=== PATIENT | female | born 1935 | race Caucasian/White ===

== ENCOUNTER 2017-07-14 09:40 | Observation (INO) | payer MEDICARE ==
[2017-07-14] MEDS ORDERED: Ondansetron INJ* 2 MG/ML VIAL IV ONE ×2 (09:43→13:30)
[2017-07-14] MEDS ORDERED: NS 0.9% 1000 ML* 1,000 ML IV ONE ×2 (09:43→13:19)
[2017-07-14 10:34] LABS: Hematocrit 39 % (35-47); Hemoglobin 13.1 g/dl (12.0-16.0); Mean Corpuscular HGB Conc 34 g/dl (31-36); Mean Corpuscular Hemoglobin 31 pg (27-31); Mean Corpuscular Volume 92 fL (80-97); Mean Platelet Volume 9 um3 (7.4-10.4); Red Blood Count 4.19 10^6/ul (4.0-5.4); Red Cell Distribution Width 13 % (10.5-15)
[2017-07-14 10:47] LABS: C Reactive Protein 6.28 mg/L (< 5.00); EGFR African American 68.6 (>60); EGFR Non-African American 53.3 (>60); Globulin 2.9 g/dL (2-4); Potassium 4.1 mmol/L (3.5-5.0); Total Bilirubin 0.6 mg/dL (0.2-1.0); Total Protein 6.9 g/dL (6.4-8.9)
--- NOTE | 2017-07-14 11:34 | RAD ---
Indication: Cough, lightheaded, nausea and vomiting. Comparison: August 25, 2015 Technique: Sitting AP and lateral chest views. Report: Mild alveolar consolidation at the RIGHT middle lobe without volume loss suspicious for pneumonia. Negative for pleural effusion or pneumothorax. Upper normal heart size. Unremarkable central pulmonary vasculature and mediastinal contours accounting for leftward rotation. Negative for free air beneath the diaphragm. IMPRESSION: Mild alveolar consolidation at the RIGHT middle lobe without volume loss suspicious for pneumonia.
[2017-07-14] MEDS ORDERED: Levofloxacin 750 MG IVPREMIX(* 750 MG/150 ML BAG IVPB ONE (12:01)
[2017-07-14] MEDS ORDERED: Levofloxacin 750 MG IVPREMIX(* 750 MG/150 ML BAG ONE (12:08)
[2017-07-14] MEDS ORDERED: Meclizine TAB* 12.5 MG PO ONE (12:22)
[2017-07-14] MEDS ORDERED: Ondansetron INJ* 2 MG/ML VIAL ONE (13:31)
[2017-07-14] MEDS ORDERED: Azithromycin IV(*) 500 MG in NS 0.9% 250 ML* 250 ML IVPB ONE (13:38)
[2017-07-14] MEDS ORDERED: cefTRIAXone VIAL(*) 1,000 MG in NS 0.9% 50 ML* 50 ML IVPB ONE (13:39)
--- NOTE | 2017-07-14 14:21 | RAD ---
Indication: Nausea and vomiting. Comparison: August 10, 2016 CT. Technique: Supine and LEFT lateral decubitus abdomen views. Report: No radiographic evidence for free air. Unremarkable bowel gas pattern. Moderate stool in the colon with moderate rectal distention with formed appearing stool. Splenic artery and iliac artery calcifications noted. Unremarkable soft tissue contours. IMPRESSION: 1. No evidence for bowel obstruction or free intraperitoneal air. 2. Moderate stool in the colon with moderate rectal distention with formed appearing stool.
[2017-07-14] MEDS ORDERED: PROCHLORPERAZINE INJ 5 MG/ML 2 ML VIAL IV PRN (14:48)
[2017-07-14] MEDS ORDERED: Ondansetron INJ* 2 MG/ML VIAL IV PRN (14:56)
[2017-07-14] MEDS ORDERED: Dextrose 50% Syringe 50 ML* 25 GM/50 ML SYRINGE IV PUSH PRN (14:59)
[2017-07-14] MEDS: NS 0.9% 1000 ML* 1,000 ML IV SCH (16:55)
[2017-07-14] MEDS: Insulin LISPRO* 1 UNITS UNIT SUBCUT SCH (17:46)
[2017-07-14] MEDS: Heparin VIAL(*) 5000 UNITS/ML VIAL (FIVE THOUSAND) SUBCUT SCH (20:27)
--- NOTE | 2017-07-14 21:01 | HP ---
CC: Dr. Zac Cardoso* [facility] MEDICINE HISTORY AND PHYSICAL: DATE OF ADMISSION: 07/14/17 PRIMARY CARE PROVIDER: Dr. Zac Cardoso. ATTENDING PHYSICIAN: Dr. Raudel Travis* (dictation provided by Jennifer Kruse NP ) CHIEF COMPLAINT: Intractable nausea and vomiting. HISTORY OF PRESENT ILLNESS: Ms. Iglesias is an 81-year-old female with a past medical history of endometrial cancer, diabetes which is non-insulin dependent, and intermittent episodes of vertigo or lightheadedness, who presents to hospital today with concern for nausea and vomiting. Ms. Iglesias states she was in her normal state of health until yesterday morning. She went to an exercise class and while there doing some exercises where she was opening and closing her eyes. She stated with this that she became a little lightheaded and vomited. She left the gym and went home. By the time she got home, she vomited again. She states that she continued to vomit from about 5 p.m. until 7 :30 p.m. almost continuously. She went to sleep and woke up around 2 a.m. and had pesistent vomiting. She lay down again for a bit more and then woke up again with constant vomiting. The patient reports that she feels very sensitive in general to bouts of vertigo or lightheadedness. She is sensitive to lying down quickly. It is difficult to ascertain from her whether or not she was feeling dizziness with sensation of the room spinning throughout this reported episode here today, which she was certainly feeling lightheaded and "not herself." She herself connects this episode to prior episodes where she has had vertigo, but she feels like this episode has lasted much longer. Regardless, she has "hot and cold flashes" but no known fever. She has had no abdominal pain, no diarrhea. There are no other complaints. In the emergency room, Ms. Iglesias was given Zofran x2, but she continued to be nauseous and vomit repeatedly. Her labs showed no leukocytosis. Her BUN and creatinine are at baseline. She has only a mild hyponatremia. Her potassium is normal. Her CRP is 6.28. Flu swab is negative. Her abdomen x- ray did show some moderate amount of stool without evidence of obstruction. The chest x-ray shows concern for "mild alveolar consolidation" at the right middle lobe without volume loss suspicious for pneumonia. She is afebrile. PAST MEDICAL HISTORY: 1. History of endometrial cancer. 2. Type 2 diabetes, non-insulin dependent. 3. Hypertension. 4. Vertigo for which she went to [facility] in [place]. MEDICATIONS: 1. B complex 1 tab p.o. daily. 2. Lisinopril 10 mg p.o. q.a.m. 3. Pantoprazole 40 mg p.o. daily. 4. Glipizide 2.5 mg p.o. daily. 5. Metformin 500 mg p.o. b.i.d. 6. Baby aspirin 81 mg p.o. q.a.m. 7. Diltiazem CD 120 mg p.o. daily. ALLERGIES: No known drug allergies. FAMILY HISTORY: Reviewed, noncontributory. SOCIAL HISTORY: No report of alcohol, tobacco, or drug use. The patient lives alone, but has support from her daughter, who is at the bedside and her daughter is her healthcare proxy. REVIEW OF SYSTEMS: A 14-point review of systems was completed with Ms. Iglesias and all those not mentioned above were negative. PHYSICAL EXAMINATION GENERAL: Ms. Iglesias is lying in the bed. She is in no acute distress. VITAL SIGNS: Temperature 96.4, pulse rate 60, respiratory rate 10, O2 saturation 94% on room air, blood pressure 170/67. LUNGS: Clear to auscultation bilaterally with no accessory muscle use and good aeration. HEART: S1, S2. No murmur, rub, or gallop, and regular. ABDOMEN: Soft and nontender with bowel sounds positive x4. EXTREMITIES: No cyanosis or edema. NEURO: She is alert. She is oriented x3. She moves all extremities equally. There is no facial asymmetry or focal weakness. Extraocular movements are intact. SKIN: Intact. DIAGNOSTIC STUDIES/LAB DATA: WBC 8.0, hemoglobin 13.1, hematocrit 39, platelet count 184. Sodium 130, potassium 4.1, chloride 96, serum bicarbonate 26, BUN 22, creatinine 1.00, glucose 218. CRP 6.28. Flu swab is negative. Chest x-ray and abdominal x-ray are as read above. EKG shows sinus bradycardia with heart rate in the 50s, but no evidence of ischemia. ASSESSMENT AND PLAN: Ms. Iglesias is an 81-year-old female with past medical history of non-insulin dependent diabetes, endometrial cancer, hypertension, and intermittent episodes of vertigo/lightheadedness, who presents to the hospital with intractable nausea and vomiting associated with some feelings of lightheadedness. Our plans are for observation to the hospital for the following : 1. Nausea and vomiting. Ms. Iglesias does not appear to have any acute gastrointestinal process. She has not had no diarrhea, no fever. Her white blood cell count and CRP are absolutely normal. I question whether or not her nausea and vomiting are related to the symptoms of dizziness and lightheadedness that she has had intermittently for some time. She feels that this is similar to those episodes; however, it is much much more severe especially in terms of the nausea and vomiting component. Regardless, the patient is having intractable nausea and vomiting in the ED even during my examination and has not responded to Zofran. Our plans will be for observation in the hospital for Zofran, Compazine, and other agents as needed. She will have normal saline for maintenance fluids. She was offered meclizine, but states that that makes her feel "weird" and so that it will be discontinued. Again, I see no evidence of infection and question whether or not this is centrally mediated process. 2. Type 2 diabetes. Plan to hold glipizide and metformin and provide blood glucoses q.a.c. with lispro sliding scale. 3. Hypertension. Continue diltiazem but hold lisinopril while the patient has poor oral intake and potential for dehydration and acute renal failure. 4. DVT prophylaxis with heparin subcu. 5. Code status is full code. TIME SPENT: Approximately 60 minutes was spent on the admission of this patient , more than half of the time was spent with the patient at the bedside reviewing the events leading up to this hospitalization, performing physical examination, and reviewing the plan of care. JENNIFER KRUSE NP [id number]/[facility] #: [id number] SUNG
[2017-07-15] MEDS: Heparin VIAL(*) 5000 UNITS/ML VIAL (FIVE THOUSAND) SUBCUT SCH (05:19)
[2017-07-15] MEDS: NS 0.9% 1000 ML* 1,000 ML IV SCH (05:21)
[2017-07-15 06:50] LABS: BUN/Creatinine Ratio 15.4 (8-20); Calcium 7.9 mg/dL (8.6-10.3); EGFR African American 76.5 (>60); EGFR Non-African American 59.5 (>60); Potassium 3.5 mmol/L (3.5-5.0)
[2017-07-15] MEDS: Insulin LISPRO* 1 UNITS UNIT SUBCUT SCH ×2 (07:22→12:48)
[2017-07-15] MEDS: Aspirin EC Low Dose* 81 MG TAB.EC PO SCH ×2 (08:19→09:54)
[2017-07-15] MEDS: Diltiazem CD CAP* 120 MG PO SCH ×2 (08:19→09:55)
[2017-07-15 11:03] VITALS: BP 129/57
--- NOTE | 2017-07-15 11:59 | PN ---
Subjective Date of Service: 07/15/17 Interval History: Ms. Iglesias states that she is feeling quite well and is eager for discharge to home. Objective Active Medications: Aspirin (Aspirin Ec Low Dose*) 81 mg PO QAM CANDICE Dextrose (D50w Syringe 50 Ml*) 12.5 gm IV PUSH .FOR FS < 60 - SS PRN Diltiazem HCl (Cardizem Cd Cap*) 120 mg PO DAILY CANDICE Heparin Sodium (Porcine) (Heparin Vial(*)) 5,000 units SUBCUT Q8HR CANDICE Sodium Chloride (Ns 0.9% 1000 Ml*) 1,000 mls @ 75 mls/hr IV PER RATE CANDICE Insulin Human Lispro (Humalog*) 0 units SUBCUT AC CANDICE Omeprazole (Prilosec Cap*) 20 mg PO EVERY OTHER DAY CANDICE Ondansetron HCl (Zofran Inj*) 4 mg IV Q6H PRN Prochlorperazine Edisylate (Compazine Inj*) 5 mg IV Q6H PRN Vital Signs 07/14/17 07/14/17 07/14/17 16:51 19:37 22:09 Temperature 97.6 F 97.6 F 98.8 F Pulse Rate 54 70 Respiratory 16 20 Rate Blood Pressure 142/58 117/51 (mmHg) O2 Sat by Pulse 99 100 Oximetry 07/14/17 07/15/17 07/15/17 23:32 03:54 07:33 Temperature 99.7 F 98.3 F 98.6 F Pulse Rate 71 64 59 Respiratory 13 16 18 Rate Blood Pressure 109/45 124/54 129/57 (mmHg) O2 Sat by Pulse 95 100 96 Oximetry Oxygen Devices in Use Now: None Appearance: Female lying in bed in NAD Eyes: No Scleral Icterus Ears/Nose/Mouth/Throat: Mucous Membranes Moist Neck: Trachea Midline Respiratory: Symmetrical Chest Expansion and Respiratory Effort, Clear to Auscultation Cardiovascular: NL Sounds; No Murmurs; No JVD, No Edema Abdominal: NL Sounds; No Tenderness; No Distention Lymphatic: No Cervical Adenopathy Extremities: No Edema Skin: No Rash or Ulcers Neurological: Alert and Oriented x 3, NL Muscle Strength and Tone Nutrition: Taking PO's Result Diagrams: 07/14/17 10:07 07/15/17 06:02 Assess/Plan/Problems-Billing Assessment: Ms. Iglesias is an 81 yo female with a PMH of vertigo, HTN, and DM who was admitted on 07/14/17 with dizziness associated with intractable nausea and vomiting. - Patient Problems (1) Nausea & vomiting Comment: - Resolved. - Suspect related to dizziness. (2) Dizziness Comment: - Resolved. - Long history fo vertigo. (3) Diabetes Comment: - Resume metformin and glipizide. (4) Hypertension Comment: - Continue diltiazem (5) DVT prophylaxis Comment: - Heparin SQ. (6) DNR (do not resuscitate) Status and Disposition: OBV. Discharge to home.
--- NOTE | 2017-07-15 16:17 | ED ---
Samina Tripathi Edward, scribed for Manish Rutledge MD on 07/14/17 at 0944 . Complex/Multi-Sys Presentation - HPI Summary HPI Summary: 81 y/o female BIBStephanie c/o N/V starting at 17:00 yesterday. Pt has also felt fatigued for the last week. The vomit is mostly clear and yellow. Pt denies pain. Last bowel movement was yesterday normal. Denies CP, SOB, diarrhea and constipation. Associated sx: intermittent cough before vomiting, dizziness, intermittent fevers/chills. Denies CP/SOB, CASTILLO.PMHx vertigo. NKDA. - History Of Current Complaint Hx Obtained From: Patient Onset/Duration: Lasting Days, Still Present Timing: Intermittent, Lasting: Associated Signs And Symptoms: Positive: Dizziness, Cough, Nausea, Vomiting, Fever - and chills, Other - Chills. Negative: Headache, SOB, Chest Pain, Diarrhea, Abdominal Pain - Allergies/Home Medications Allergies/Adverse Reactions: Allergies Allergy/AdvReac Type Severity Reaction Status Date / Time No Known Allergies Allergy Verified 08/25/15 15:53 Home Medications: Home Medications Pantoprazole TAB (NF) [Protonix TAB (NF)] 40 mg PO DAILY 07/14/17 [History Confirmed 07/14/17] PMH/Surg Hx/FS Hx/Imm Hx Previously Healthy: No Endocrine/Hematology History: Reports: Hx Diabetes Denies: Hx Anticoagulant Therapy Cardiovascular History: Reports: Hx Hypertension Denies: Hx Pacemaker/ICD History: Reports: Other Problems/Disorders - UTI Denies: Hx Dialysis, Hx Kidney Stones, Hx Renal Disease Musculoskeletal History: Reports: Other Musculoskeletal History - left ankle fx repair causes Sensory History: Reports: Hx Cataracts, Hx Contacts or Glasses - READING GLASSES INST GIVEN Denies: Hx Hearing Aid Opthamlomology History: Reports: Hx Cataracts, Hx Contacts or Glasses - READING GLASSES INST GIVEN Neurological History: Reports: Hx Migraine - YRS AGO, Other Neuro Impairments/ Disorders - hearing loss left Psychiatric History: Denies: Hx Panic Disorder - Cancer History Cancer Type, Location and Year: endometrial - Surgical History Surgery Procedure, Year, and Place: 2009 left broken ankle surgery Hx Anesthesia Reactions: No - Family History Known Family History: Positive: Other - no malignant hyperthermia, no anesthesia reaction - Social History Alcohol Use: Weekly Hx Substance Use: No Substance Use Type: Reports: None Hx Tobacco Use: No Smoking Status (MU): Never Smoked Tobacco Review of Systems Positive: Fever, Chills, Fatigue Eyes: Negative ENT: Negative Cardiovascular: Negative Negative: Chest Pain Positive: Cough. Negative: Shortness Of Breath Positive: Vomiting, Nausea, Other - No constipation. Negative: Abdominal Pain, Diarrhea Genitourinary: Negative Musculoskeletal: Negative Skin: Negative Neurological: Other - dizziness Negative: Headache Psychological: Normal All Other Systems Reviewed And Are Negative: Yes Physical Exam - Summary Physical Exam Summary: VITAL SIGNS: Reviewed. GENERAL: ~Patient is an elderly female who is vomiting bile vomitus in the stretcher. ~Patient is not in any acute respiratory distress. HEAD AND FACE: No signs of trauma. ~No ecchymosis, hematomas or skull depressions. No sinus tenderness. EYES: PERRLA, EOMI x 2, No injected conjunctiva, no nystagmus. EARS: Hearing grossly intact. Ear canals and tympanic membranes are within normal limits. MOUTH: Oropharynx within normal limits. NECK: Supple, trachea is midline, no adenopathy, no JVD, no carotid bruit, no c- spine tenderness, neck with full ROM. CHEST: Symmetric, no tenderness at palpation LUNGS: Clear to auscultation bilaterally. No wheezing or crackles. CVS: Regular rate and rhythm, S1 and S2 present, no murmurs or gallops appreciated. ABDOMEN: Soft, non-tender. No signs of distention. No rebound no guarding, and no masses palpated. Bowel sounds are normal. EXTREMITIES: FROM in all major joints, no edema, no cyanosis or clubbing. NEURO: Alert and oriented x 3. No acute neurological deficits. Speech is normal and follows commands. SKIN: Dry and warm Triage Information Reviewed: Yes Vital Signs Reviewed: Yes Diagnostics - Laboratory Result Diagrams: 07/14/17 10:07 07/14/17 10:07 Lab Statement: Any lab studies that have been ordered have been reviewed, and results considered in the medical decision making process. - Radiology CXR Xray Interpretation: Positive (See Comments) - Mild alveolar consolidation at the RIGHT middle lobe without volume loss suspicious for pneumonia. ED PHYSICIAN AGREES Radiology Interpretation Completed By: Radiologist ABD XR Xray Interpretation: No Acute Changes - 1. No evidence for bowel obstruction or free intraperitoneal air. 2. Moderate stool in the colon with moderate rectal distention with formed appearing stool. Radiology Interpretation Completed By: Radiologist - EKG 1 EKG Interpretation: 10:35 - SINUS BRADYCARDIA @ [address] ELEVATIONS Re-Evaluation - Re-Evaluation 1 Re-Evaluation Time: 12:15 Change: Unchanged 2 Re-Evaluation Time: 13:30 Comment: Pt is vomiting on revisit, with no pain. Re-exam of ABD/PEL - no pain. Complex Multi-Symp Course/Dx Assessment/Plan: 81 y/o female BIBA c/o N/V starting at 17:00 yesterday. Pt has also felt fatigued for the last week. The vomit is mostly clear and yellow. Pt denies pain. Last bowel movement was yesterday normal. Denies CP, SOB, diarrhea and constipation. Associated sx: intermittent cough before vomiting, dizziness, intermittent fevers/chills. Denies CP/SOB, CASTILLO.PMHx vertigo. NKDA. EKG 10:35 - SINUS BRADYCARDIA @ [address] ELEVATIONS. CXR SHOWS Mild alveolar consolidation at the RIGHT middle lobe without volume loss suspicious for pneumonia. ABD XR SHOWS 1. No evidence for bowel obstruction or free intraperitoneal air. 2. Moderate stool in the colon with moderate rectal distention with formed appearing stool. Sodium 130, creatinine 1, glucose 218, CRP 6.28. Influenza A and B negative. In the ED course the patient was given Levaquin, IV fluids, and Zofran for n/v. Pt continues to have N/V and feels weak. Re-examination was WNL; the pt denies abd pain, cp or sob. Therefore I took an abd xr to r/o obstruction. Pt continues to have n/v and was given a 2nd dose of Zofran. At this point I spoke to Dr. Travis who accepted the pt for admission. The patient is hemodynamically stable, A&Ox3. - Diagnoses Provider Diagnoses: Intractable vomiting, Weakness, Pneumonia - Physician Notifications Discussed Care Of Patient With: Raudel Travis Time Discussed With Above Provider: 14:10 Instructed by Provider To: Admit As Inpatient Discharge - Discharge Plan Condition: Stable Disposition: ADMITTED TO [facility] Referrals: Zac Cardoso MD [Primary Care Provider] - The documentation as recorded by the Samina mejia Edward accurately reflects the service I personally performed and the decisions made by Aamir bean Walter, MD.
--- NOTE | 2017-07-15 23:19 | DS ---
CC: Zac Cardoso MD* [facility] MEDICINE DISCHARGE SUMMARY: DATE OF ADMISSION: 07/14/17 DATE OF DISCHARGE: 07/15/17 PRIMARY CARE PHYSICIAN: Zac Cardoso MD ATTENDING PHYSICIAN: Carlos Longoria MD* (dictation provided by Jennifer Kruse NP) PRIMARY DIAGNOSES: 1. Intractable nausea and vomiting. 2. Dizziness. SECONDARY DIAGNOSES: 1. History of vertigo. 2. History of endometrial cancer. 3. Type 2 diabetes, [id number]. 4. Hypertension. MEDICATIONS: At the time of discharge: 1. Compazine 5 mg as needed. 2. B complex 1 tab p.o. daily. 3. Lisinopril 10 mg p.o. q.a.m. 4. Pantoprazole 40 mg p.o. daily. 5. Glipizide 2.5 mg p.o. daily. 6. Metformin 500 mg p.o. b.i.d. 7. Baby aspirin 81 mg p.o. daily. 8. Diltiazem CD 120 mg p.o. daily. HOSPITAL COURSE: Ms. Iglesias is an 81-year-old female with a past medical history of hypertension and diabetes as well as vertigo who presented to the hospital on 07/14/17 with concern for intractable nausea and vomiting. Please see the dictated H and P from myself for complete details. In brief, the patient reported being very sensitive to changes in head position with a history of vertigo and had started to feeling unwell after an exercise class earlier that day. She had intractable nausea and vomiting for several hours before she presented to the emergency room. She was given Zofran, but continued to have vomiting. In the ED, she had an abdominal x-ray, which showed no acute abnormality. Her EKG showed no acute abnormality without evidence of ischemia. Her labs were essentially normal. There was concern that perhaps there was early infiltrate on chest x-ray, but she had no evidence of cough, fever, or shortness of breath. Ms. Iglesias was placed on observation in the hospital with concern of intractable nausea and vomiting. She remained unwell through the night, but this morning she was feeling much better. She has been able to tolerate breakfast with no vomiting. She has been ambulating in her room independently. I suspect that her nausea was secondary to vertiginous symptoms, which have now resolved. Ms. Iglesias is stable for discharge to home with followup with Dr. Cardoso. DISPOSITION: To home. DIET: Consistent carbohydrate. ACTIVITY: As tolerated. FOLLOWUP PLANS: Please follow up with Dr. Cardoso in the next 1 to 2 weeks regarding this observational stay in the hospital. JENNIFER KRUSE NP [id number]/[facility] #: [id number] SUNG
[2017-07-16] MEDS ORDERED: Omeprazole CAP* 20 MG PO SCH (09:00)
== END 2017-07-15 13:10 | disposition home or self-care (01) ==
LOC: ED 09:40 → MED 14:55
PROVIDERS: ADMIT Internal Medicine; ATTEND Internal Medicine
DX: R11.2 Nausea with vomiting, unspecified (principal); R42 Dizziness and giddiness; E11.9 Type 2 diabetes mellitus without complications; I10 Essential (primary) hypertension; Z85.89 Personal history of malignant neoplasm of other organs and systems; Z79.899 Other long term (current) drug therapy; Z79.84 Long term (current) use of oral hypoglycemic drugs; R00.1 Bradycardia, unspecified
CPT/HCPCS: 36415; 71020; 74020; 80048; 80053; 82150; 83690; 84484; 85025; 86140; 87502; 93005; 96361; 96365; 96376; 99283; A9270-GY; G0378; J1644; J2405

== ENCOUNTER 2019-10-30 14:45 | Observation (INO) | payer MEDICARE ==
--- NOTE | 2019-10-30 15:31 | ED ---
Dizziness - HPI Summary HPI Summary: Patient is an 84 y/o F presenting to the ED via EMS for a chief complaint of dizziness that began around 14:00 on 10/30/19. Patient is present with her daughter. Patient's daughter states the patient was having lunch at [employer] when the patient suddenly began to feel dizzy. After the dizziness began, the patient had lightheadedness, nausea and vomiting. On EMS arrival, patient was unable to ambulate to the ambulance due to her dizziness. The patient feels as if she will have a syncopal episode. The dizziness worsens with opening her eyes. Patient describes that her current symptoms are different from dizziness associated with her PMHx of vertigo. Per daughter, patient last had an episode of vertigo 1 years ago. Her vertigo lasts for 1 day before resolving. She was seen by her PCP, diagnosed with a UTI, and prescribed Sulfa drugs to treat the UTI. Since taking the Sulfa drugs, patient has been feeling lightheaded and fatigued. On 10/25/19, patient returned to her PCP concerned that the antibiotic was interacting with her other daily medications. PMHx is significant for hypertension and diabetes mellitus for which she takes metformin and glipizide. Patient has seen at neurologist in the past for her vertigo. - History Of Current Complaint Chief Complaint: EDDizziness Stated Complaint: DIZZY,NAUSEA,VOMITING PER EMS Time Seen by Provider: 10/30/19 15:03 Hx Obtained From: Patient, Family/[employer] - Daughter Severity Initially: Moderate Severity Currently: Moderate Character: Lightheaded, Dizzy Aggravating Factor(s): Other - Opening the eyes Alleviating Factor(s): Nothing Associated Signs And Symptoms: Positive: Nausea, Vomiting, Inability to Walk - Allergies/Home Medications Allergies/Adverse Reactions: Allergies Allergy/AdvReac Type Severity Reaction Status Date / Time No Known Allergies Allergy Verified 10/30/19 14:52 Home Medications: Home Medications Vitamin B Complex CAP* [B Complex CAP*] 1 cap PO DAILY 10/30/19 [History Confirmed 10/30/19] PMH/Surg Hx/FS Hx/Imm Hx Previously Healthy: Yes Endocrine/Hematology History: Reports: Hx Diabetes Denies: Hx Anticoagulant Therapy Cardiovascular History: Reports: Hx Hypercholesterolemia, Hx Hypertension Denies: Hx Pacemaker/ICD GI History: Reports: Hx Gastroesophageal Reflux Disease History: Reports: Other Problems/Disorders - UTI Denies: Hx Dialysis, Hx Kidney Stones, Hx Renal Disease Musculoskeletal History: Reports: Other Musculoskeletal History - left ankle fx repair causes Sensory History: Reports: Hx Cataracts, Hx Contacts or Glasses - READING GLASSES INST GIVEN Denies: Hx Legally Blind, Hx Deafness, Hx Hearing Aid Opthamlomology History: Reports: Hx Cataracts, Hx Contacts or Glasses - READING GLASSES INST GIVEN Denies: Hx Legally Blind EENT History: Denies: Hx Deafness Neurological History: Reports: Hx Migraine - YRS AGO, Hx Nerve Disease - neuropathy bilateral feet, Other Neuro Impairments/Disorders - hearing loss left , vertigo Psychiatric History: Denies: Hx Panic Disorder - Cancer History Cancer Type, Location and Year: endometrial - Surgical History Surgical History: Yes Surgery Procedure, Year, and Place: 2009 left broken ankle surgery Hx Anesthesia Reactions: No - Immunization History Date of Tetanus Vaccine: unk Date of Influenza Vaccine: utd Infectious Disease History: No Infectious Disease History: Denies: Traveled Outside the [place] in Last 30 Days - Family History Known Family History: Positive: Other - no malignant hyperthermia, no anesthesia reaction - Social History Occupation: Retired Alcohol Use: Occasionally Hx Substance Use: No Substance Use Type: Reports: None Hx Tobacco Use: No Smoking Status (MU): Never Smoked Tobacco Review of Systems Positive: Fatigue Positive: Vomiting, Nausea Neurological: Other - Positive dizziness, lightheadedness, and pre-syncope All Other Systems Reviewed And Are Negative: Yes Physical Exam - Summary Physical Exam Summary: Constitutional: Mild distress, actively vomiting Skin: Warm, Dry HENT: Normocephalic; Atraumatic Eyes: Conjunctiva normal Neck: Musculoskeletal ROM normal neck. (-) JVD, (-) Nuchal rigidity Cardio: bradycardic, Heart sounds normal; Intact distal pulses; Radial pulses are 2+ and symmetric. (-) Murmur. Bradycardic. Pulmonary/Chest wall: Effort normal. (-) Respiratory distress, (-) Wheezes, (-) Rales Abd: Soft. (-) Tenderness, (-) Distension, (-) Guarding, (-) Rebound Musculoskeletal: (-) Edema Lymph: (-) Cervical adenopathy Neuro: Alert, PERRL, Oriented x3, Strength normal, Cranial nerves II-XII are grossly intact. SILT, Strength 5/5 BUE and BLE, (-) Dysmetria, (-) Nystagmus, ambulation deferred Psych: Mood and affect Normal Triage Information Reviewed: Yes Vital Signs On Initial Exam: Initial Vitals Temp Pulse Resp BP Pulse Ox 86.2 F 59 16 169/90 94 10/30/19 14:50 10/30/19 14:50 10/30/19 14:50 10/30/19 14:50 10/30/19 14:50 Vital Signs Reviewed: Yes - [place] Coma Scale Best Eye Response: 4 - Spontaneous Best Motor Response: 6 - Obeys Commands Best Verbal Response: 5 - Oriented Coma Scale Total: 15 Procedures - Sedation Patient Received Moderate/Deep Sedation with Procedure: No Diagnostics - Vital Signs Vital Signs Temp Pulse Resp BP Pulse Ox 10/30/19 14:50 86.2 F 59 16 169/90 94 - Laboratory Result Diagrams: 10/31/19 06:32 10/31/19 06:32 Lab Statement: Any lab studies that have been ordered have been reviewed, and results considered in the medical decision making process. - CT Brain CT CT Interpretation Completed By: Radiologist Summary of CT Findings: Brain CT IMPRESSION: NO ACUTE INTRACRANIAL PATHOLOGY. Reviewed by Dr. Flood. - EKG 15:34 Cardiac Rate: Bradycardia - 52 BPM EKG Rhythm: Sinus Bradycardia ST Segment: Normal Ectopy: None Summary of EKG Findings: An EKG at 15:34 reveals sinus bradycardia with 52 BPM, left axis, T wave inversion in V1, nml intervals. No STEMI. No acute changes. Dr. Flood has reviewed and interpreted this EKG. 17:14 Cardiac Rate: Bradycardia - 52 BPM EKG Rhythm: Sinus Bradycardia ST Segment: Normal Ectopy: None Summary of EKG Findings: An EKG at 17:14 reveals sinus bradycardia with 52 BPM, nml axis, nml intervals. No STEMI. No acute changes. No significant change from prior. Dr. Flood has reviewed and interpreted this EKG. Re-Evaluation - Re-Evaluation First Eval Re-Evaluation Time: 17:46 Change: Unchanged Comment: At 17:46, patients family is agreeable to admission. Dizzy Course/Dx - Course Course Of Treatment: 84 y/o F w hx veritgo in past persistent fatigue, vertigo nausea and vomiting. - On arrival to ED, patient with severe vertigo, no significant nystagmus on exam (but patient unable to perform initial neuro exam 2/2 severe nausea). Vertigo resolved with Zofran, patient in much improved. EKG sinus, trop neg. Patient does appear to have an arrhythmia on telemetry strip. This was printed. Labs notable for magnesium of 1.5 which was repleted ( likely in setting of vomiting). Patient also hypothermic to 95 rectally. No reported infectious symptoms (did get recent txt for UTI). TSH and T4 added on to labs. CT brain shows no acute abnormalities. Patient to be admitted to hospitalist for further workup for fatigue/hypothermia. - Diagnoses Provider Diagnoses: Vertigo, Lightheadedness, Hypothermia - Provider Notifications Discussed Care Of Patient With: Lizzeth Cook - At 17:42, Dr. Lizzeth Cook agrees to admit the patient to [facility] with a diagnosis of vertigo, hypothermia, and lightheadedness. Time Discussed With Above Provider: 17:42 Instructed by Provider To: Admit As Inpatient Discharge ED - Sign-Out/Discharge Documenting (check all that apply): Patient Departure - Admit - Discharge Plan Condition: Stable Disposition: ADMITTED TO [facility] - Billing Disposition and Condition Condition: STABLE Disposition: Admitted to [facility] - Attestation Statements Document Initiated by Joshuaibe: Yes Documenting Scribe: Marysol Sprague Provider For Whom Juana is Documenting (Include Credential): Darius Flood MD Scribe Attestation: Marysol Tripathi, scribed for Darius Flood MD on 10/31/19 at 0734. Scribe Documentation Reviewed: Yes Provider Attestation: The documentation as recorded by the scribeMarysol accurately reflects the service I personally performed and the decisions made by me, Darius Flood MD Status of Scribe Document: Viewed
[2019-10-30 15:54] LABS: ABS Eosinophils 0.2 10^3/ul (0-0.6); ABS Lymphocytes 3.2 10^3/ul (1.0-4.8); ABS Monocytes 0.4 10^3/ul (0-0.8); ABS Neutrophils 3.9 10^3/ul (1.5-7.7); Hematocrit 38 % (35-47); Hemoglobin 12.9 g/dL (12.0-16.0); Lymphocyte % 41.4 %; Mean Corpuscular HGB Conc 34 g/dL (31-36); Mean Corpuscular Hemoglobin 31 pg (27-31); Mean Corpuscular Volume 92 fL (80-97); Mean Platelet Volume 9.2 fL (7.4-10.4); Nucleated Red Blood Cells % 0.2; Platelet Count 189 10^3/uL (150-450); Red Blood Count 4.09 10^6 /uL (3.70-4.87); Red Cell Distribution Width 13 % (10-15); White Blood Count 7.7 10^3/uL (3.5-10.8)
[2019-10-30 16:15] LABS: Albumin 4.2 g/dL (3.2-5.2); Albumin/Globulin Ratio 1.6 (1-3); BUN/Creatinine Ratio 32.7 (8-20); EGFR African American 63.3 (>60); EGFR Non-African American 52.3 (>60); Globulin 2.6 g/dL (2-4); Potassium 4.8 mmol/L (3.5-5.0); Total Bilirubin 0.3 mg/dL (0.2-1.0); Total Protein 6.8 g/dL (6.4-8.9)
[2019-10-30] MEDS ORDERED: Meclizine TAB* 12.5 MG PO ONE (16:15)
[2019-10-30] MEDS ORDERED: NS 0.9% 1000 ML** 1,000 ML IV ONE (16:15)
[2019-10-30 17:19] LABS: Magnesium 1.5 mg/dL (1.9-2.7)
[2019-10-30] MEDS ORDERED: Magnesium Sulf 4 GM/100 ML IV* 4,000 MG/100 ML BAG IVPB ONE (17:34)
[2019-10-30] MEDS ORDERED: Ondansetron INJ* 2 MG/ML VIAL IV PRN (19:08)
[2019-10-30] MEDS ORDERED: Acetaminophen TAB* 325 MG PO PRN (19:08)
[2019-10-30 19:11] LABS: TSH (Thyroid Stimulating Horm) 2.2 mcIU/mL (0.34-5.60)
[2019-10-30 19:13] LABS: Free T4 1.28 ng/dL (0.61-1.12)
[2019-10-30] MEDS ORDERED: Dextrose 50% VIAL 50 ml IV PUSH PRN (19:27)
[2019-10-30] MEDS ORDERED: Enoxaparin(*) 40 MG/0.4 ML SYR SUBCUT SCH (20:00)
[2019-10-30 20:41] LABS: Urine Appearance Clear; Urine Bilirubin Negative (Negative); Urine Blood Negative (Negative); Urine Color Straw; Urine Glucose 1+(50 mg/dL) (Negative); Urine Ketones Trace (Negative); Urine Nitrite Negative (Negative); Urine Protein Negative (Negative); Urine Specific Gravity 1.012 (1.010-1.030); Urine Urobilinogen Negative (Negative)
[2019-10-30 20:48] LABS: C Reactive Protein 1.25 mg/L (<8.01)
--- NOTE | 2019-10-30 22:59 | HP ---
ADMISSION HISTORY AND PHYSICAL: DATE OF ADMISSION: 10/30/19 PRIMARY CARE PHYSICIAN: Dr. Melvin Huff. PROVIDER: Kaleb Hendrix NP ATTENDING PHYSICIAN: Dr. Frank.* (DICTATED BY KALEB HENDRIX NP) CHIEF COMPLAINT: Dizziness, weakness, vomiting. HISTORY OF PRESENT ILLNESS: This is an 84-year-old female with the past medical history significant for endometrial cancer, diabetes type 2, hypertension, and GERD, who came to the emergency room on 10/30/19 for reports of dizziness, nausea, vomiting, and weakness. This afternoon she was sitting down at [facility] to eat her micronesian food when she suddenly felt frozen and disconnected and started to vomit. She described this sensation as being a blank sensation. She denied any loss of consciousness, chest pain, palpitations , shortness of breath, or abdominal pain. She was unable to state for how long this episode lasted, though she was able to call her daughter on the phone, who was in [facility] with her. Her daughter stated that when she found her she was pale and sweaty. When the EMS arrived, she stated that she felt on the edge of passing out though never did and was unable to stand. They required 2 max assist from the EMS. Of note, she saw her PCP last week. She had had a UA done which they had stated showed urinary tract infection and had been started on sulfa which she began taking on Sunday10/24/19. However, she stopped taking it on Sunday because on Sunday when she started taking the sulfa, she started to feel shaky, weak, and lightheaded and felt that it was hypoglycemia and so she was eating more than usual, which was not alleviating the symptoms. Nothing made them worse, nothing made them better. She felt slightly better this morning before the previously stated episode. In the emergency room, labs were drawn, brain CT was done, EKG performed, she received a L of IV fluids and IV magnesium and meclizine. PAST MEDICAL HISTORY: Endometrial cancer, diabetes type 2, hypertension, vertigo, bilateral lower extremity enteropathy, GERD, hyperlipidemia, cataracts , migraines, left ear hearing loss. PAST SURGICAL HISTORY: Left ankle ORIF. MEDICATIONS: Home medications: 1. Metformin 500 mg p.o. b.i.d. 2. Pantoprazole 40 mg p.o. every other day. 3. Lisinopril 10 mg p.o. q.a.m. 4. Diltiazem 120 mg p.o. q.a.m. 5. Vitamin B complex 1 tab p.o. daily. 6. Aspirin 81 mg p.o. q.a.m. ALLERGIES: No known drug allergies. FAMILY HISTORY: Significant for cancer, CVA, hypertension, heart disease, and diabetes. SOCIAL HISTORY: Denies any tobacco, EtOH, or recreational substance use. She is retired. Lives alone, though has help from her daughter. REVIEW OF SYSTEMS: An 11-point system review was performed, which was positive for shakiness, weakness, lightheadedness. Negative for any recent injury, burn , skin conditions. Appetite has been good up until today. Denied any feeling feverish, chest pain, palpitations, short of breath, abdominal pain, diarrhea, issues with moving her bowels or bladder. It was also positive for nausea and vomiting. PHYSICAL EXAMINATION GENERAL: This is a well-developed older woman seen resting in bed, in no acute distress. VITAL SIGNS: 94.5 Fahrenheit rectally, 60 pulse, 22 resp, 96% oxygen on room air, 160/71 blood pressure. HEENT: Conjunctivae pink and moist. PERRLA, EOMs intact. Mucous membranes moist. Oropharynx clear. Tongue midline. NECK: Supple. RESPIRATORY: Lung sounds clear throughout bilaterally on room air. CARDIAC: S1, S2 present. Heart rate irregular. Systolic murmur heard in the pulmonic area. No gallops or rubs appreciated. No carotid bruits. ABDOMEN: Large, soft, nontender, and nondistended with positive bowel sounds x4. MUSCULOSKELETAL: No clubbing or cyanosis of the digits. Left leg slightly larger than the right which she states is her norm. SKIN: No rashes or open areas appreciated. NEUROLOGIC: Sensation intact to light touch. Moves all extremities. No focal deficits appreciated. PSYCH: She is alert and oriented x3. Bowel content organized. No overt anxiety or depression. DIAGNOSTIC STUDIES/LAB DATA: Diagnostic studies: Brain CT scan showed no acute intracranial pathology. EKG showed sinus egoffrey with PAC and T-wave inversion in V1. Pertinent lab data: Sodium 129, chloride 99, BUN 33, creatinine 1.01, BUN and creatinine ratio 32.7, glucose 177, lactic acid 0.7, magnesium 1.5. Troponin 0.00. TSH 2.20, free T4 of 1.28. Cortisol 29.57. ASSESSMENT AND PLAN: My impression, this is an 84-year-old female with a past medical history significant for endometrial cancer, diabetes type 2, and hypertension, who was admitted on 10/30/19 for near syncopal episode. 1. Near syncope. The patient strongly believes that this is related to her vertigo as it has a lot of similar symptoms; however, I disagree. This has more of a cardiac component to it. The news of her heart murmur was new to her. We will conduct a transthoracic echocardiogram, place the patient on telemetry monitoring because the patient was recently diagnosed by her PCP as having a urinary tract infection though did not complete course of antibiotics. It is possible that this could be related to possible infection despite the lack of leukocytosis or fever. We will recheck UA. 2. Mild hypothermia. The patient received warming via Eli Hugger Gown in the emergency room and responded well to that. Most recent temporal temperature of over 98 degrees. [place] that this could also be possibly due to infection. We will check the UA. Is not on any medications that will cause mild hypothermia. Denied being outside for prolonged period of time. 3. Hypomagnesemia. This is secondary to vomiting. Magnesium level was 1.5, repleted with 4 g of IV magnesium. We will recheck in the a.m. 4. Diabetes type 2. Recently had her glipizide stopped by her PCP. We will hold her home metformin for now and check fingersticks a.c. with sliding scale lispro. Her hemoglobin A1c which was obtained from Johnny was under 7%. 5. Hypertension. She has had an elevated blood pressure in the emergency room. Should continue lisinopril and diltiazem. There may be need to titrate the dosing up on her lisinopril. Continue her baby aspirin. 6. Gastroesophageal reflux disease. Continue pantoprazole. She had her every other day dosing today. We will restart again in 2 days. Has no signs or symptoms of indigestion at this time. 7. DVT prophylaxis. Initiated Lovenox subcutaneously. 8. Code status is full code. New MOLST form was filled out with the patient and her family as she previous had been a DNR. CONDITION: Guarded. DISPOSITION: Admit OBV to [address] [place] [address]. TIME SPENT: Time spent on the patient is about 60 minutes with half of that spent [id number]. The case was reviewed by my attending and they agree with the plan of care. KALEB HENDRIX, KRISTEN [id number]/CPS #: [id number] SUNG
[2019-10-31 07:06] LABS: ABS Eosinophils 0.1 10^3/ul (0-0.6); ABS Lymphocytes 2.1 10^3/ul (1.0-4.8); ABS Monocytes 0.3 10^3/ul (0-0.8); ABS Neutrophils 3.2 10^3/ul (1.5-7.7); Eosinophil % 1.7 %; Hematocrit 37 % (35-47); Hemoglobin 12.9 g/dL (12.0-16.0); Lymphocyte % 36.8 %; Mean Corpuscular HGB Conc 35 g/dL (31-36); Mean Corpuscular Hemoglobin 32 pg (27-31); Mean Corpuscular Volume 92 fL (80-97); Platelet Count 185 10^3/uL (150-450); Red Blood Count 4.01 10^6 /uL (3.70-4.87); Red Cell Distribution Width 13 % (10-15); White Blood Count 5.8 10^3/uL (3.5-10.8)
[2019-10-31 07:14] LABS: BUN/Creatinine Ratio 23.2 (8-20); Calcium 8.7 mg/dL (8.6-10.3); EGFR African American 64.8 (>60); EGFR Non-African American 53.6 (>60); Magnesium 2.3 mg/dL (1.9-2.7)
[2019-10-31 07:20] LABS: Potassium 5.3 mmol/L (3.5-5.0)
[2019-10-31] MEDS: Insulin LISPRO* 1 UNITS UNIT SUBCUT SCH ×2 (07:50→12:26)
[2019-10-31] MEDS ORDERED: Vitamin B Complex TAB PO SCH (09:00)
[2019-10-31] MEDS ORDERED: Diltiazem CD CAP* 120 MG PO SCH (09:00)
[2019-10-31] MEDS ORDERED: Aspirin EC TAB* 81 MG TAB.EC PO SCH (09:00)
[2019-10-31] MEDS ORDERED: Lisinopril TAB* 10 MG PO SCH (09:00)
--- NOTE | 2019-10-31 09:21 | ECHO ---
*[facility]* [place] [address] Fax #: [phone] Transthoracic Echocardiogram Patient: Clau Iglesias : 1935 Study Date: 10/31/2019 Age: 84 Gender: F HR: 55 bpm Height: 61 in /154.9 cm BSA: 1.83 m^2 Weight: 184.6 lb /83.9 kg BMI: 35 kg/m^2 *Patent Legal Assistant: Kim Goetz RDCS RN *Referring Physician: * Josephine Bautista *Reading Physician: * Garry Segura MD Indications: Syncope. Murmur. History: Vertigo. Migraines. Risk factors: Hypertension. Diabetes mellitus. Obese. Dyslipidemia. Conclusions Summary: - Left ventricle: The cavity size is normal. Wall thickness is mildly increased. Systolic function is normal. The estimated ejection fraction is 60-65%. Wall motion is normal; there are no regional wall motion abnormalities. - Right ventricle: The cavity size is normal. Systolic function is normal. - Left atrium: The atrium is mildly dilated. - Pulmonary arteries: Systolic pressure is at the upper limits of normal, estimated to be 35 mm Hg. - Aortic valve sclerosis and calcification without any significant stenosis noted by doppler Recommendations: None prior for comparison. Study data: Transthoracic echocardiogram. Procedure: Transthoracic echocardiography was performed. Image quality was fair. The study was technically limited due to body habitus. Complete 2D, spectral Doppler, and color flow Doppler. Location: Bedside. Patient status: Observation. Patient room number: 449-02. Rhythm: Bradycardia. Findings Left ventricle: The cavity size is normal. Wall thickness is mildly increased. Systolic function is normal. The estimated ejection fraction is 60-65%. Wall motion is normal; there are no regional wall motion abnormalities. Left ventricular diastolic function parameters are indeterminate. Right ventricle: The cavity size is normal. Systolic function is normal. Left atrium: The atrium is mildly dilated. Right atrium: The atrium is normal in size. Mitral valve: The mitral valve annulus appears mildly calcified. The leaflets are mildly thickened. There is no evidence of stenosis. There is trace to mild regurgitation. Aortic valve: The annulus is mild calcified. The valve is trileaflet. The leaflets are mildly thickened, especially the left coronary cusp, with mildly decreased excursion. There is trace regurgitation. Tricuspid valve: The leaflets are normal thickness. There is no evidence of stenosis. There is trace to mild regurgitation. Pulmonic valve: Not well visualized. There is no evidence of stenosis. There is trace regurgitation. Aorta: Aortic root: The aortic root is not dilated. Ascending aorta: The ascending aorta is not dilated. Aortic arch: The aortic arch is not dilated. Pericardium: There is no significant pericardial effusion. Pulmonary arteries: Not well visualized. Systolic pressure is at the upper limits of normal, estimated to be 35 mm Hg. Systemic veins: Inferior vena cava: The vessel is normal in size. There is (>= 50%) respiratory change in the IVC dimension. Measurements Left ventricle Value Ref Aortic valve Value Ref NAY, LAX 3.8 cm 3.8 - 5.2 Gurpreet diam, ED 2.0 cm ---- ESD, LAX 2.7 cm 2.2 - 3.5 Peak v, S 1.6 m/sec ---- FS, LAX 27 % 27 - 45 VTI, S 43.9 cm ---- PW, ED 0.9 cm 0.6 - 0.9 Mean grad, S 6.0 mm Hg ---- IVS/PW, ED 1.27 Peak grad, S 11.0 mm Hg ---- Qs 1.7 L/min LVOT/AV, VTI ratio 0.56 ---- E', lat gurpreet, TDI (L) 6.7 cm/sec >=10.0 ADALBERTO, VTI 1.80 cm^2 --- - E/e', lat gurpreet, 14 ADALBERTO, Vmax 2.10 cm^2 ---- TDI E', med gurpreet, TDI (L) 5.4 cm/sec >=7.0 Mitral valve Value Ref E/e', med gurpreet, 17 Peak E 0.91 m/sec ---- TDI Peak A 1.21 m/sec ---- E', avg, TDI 6.1 cm/sec Decel time 239 ms ---- E/e', avg, TDI (H) 15 <=14 Peak grad, D 3.3 mm Hg --- - Peak E/A ratio 0.8 ---- LVOT Value Ref Diam, S 2.00 cm Pulmonic valve Value Ref Area 3.1 cm^2 Peak v, S 0.68 m/sec ---- Peak tanner, S 1.05 m/sec Peak grad, S 2.0 mm Hg ---- VTI, S 24.7 cm Mean grad, S 2 mm Hg Tricuspid valve Value Ref SV 78 ml Peak RV-RA grad, S 32 mm Hg ---- SV/bsa 43 ml/m^2 Max TR tanner 2.8 m/sec ---- Ventricular septum Value Ref Aortic root Value Ref IVS, ED (H) 1.1 cm 0.6 - 0.9 Root diam 2.8 cm <4.0 Right ventricle Value Ref Ascending aorta Value Ref NAY minor ax, A4C 3.2 cm 1.9 - 3.5 AAo AP diam, S 3.4 cm ---- mid Pressure, S 35 mm Hg Aortic arch Value Ref Arch diam 2.4 cm ---- Left atrium Value Ref AP dim, ES 3.80 cm 2.70 - Decending aorta Value Ref 3.80 Zayra peak tanner 0.53 m/sec ---- ML dim, A4C 4.4 cm SI dim, A4C 4.9 cm Pulmonary artery Value Ref Vol/bsa, ES, 1-p 24 ml/m^2 11 - 40 Pressure, S 35.0 mm Hg ---- A4C Vol/bsa, ES, A/L 28 ml/m^2 16 - 34 Inferior vena cava Value Ref Diam 1.6 cm ---- Right atrium Value Ref ML dim, ES, A4C 3.7 cm 2.6 - 4.4 SI dim, ES, A4C 4.9 cm 3.4 - 5.3 Estimated RAP 3 mm Hg Legend: (L) and (H) ton values outside specified reference range. Prepared and electronically signed by Garry Segura MD 10/31/2019 09:20
[2019-10-31 11:35] VITALS: BP 118/53
--- NOTE | 2019-10-31 23:53 | DS ---
AMENDED REPORT NOW INCLUDES DESIGNATED COSIGNER CC: Dr. Melvin Huff * DISCHARGE SUMMARY: DATE OF ADMISSION: 10/30/19 DATE OF DISCHARGE: 10/31/19 PROVIDER: Josephine Hendrix NP. ATTENDING PHYSICIAN: Dr. Truong.* (DICTATED BY JOSEPHINE HENDRIX NP) PRIMARY CARE PHYSICIAN: Dr. Melvin Huff. PRIMARY DIAGNOSES: 1. Near syncope. 2. Mild hypothermia 3. Hypomagnesemia. SECONDARY DIAGNOSES: 1. Diabetes type 2. 2. Hypertension. 3. Gastroesophageal reflux disease. PROCEDURES: None. DIAGNOSTIC STUDIES/LAB DATA: CT of the brain showed no acute intracranial pathology. Transthoracic echocardiogram showed an ejection fraction of 60 to 65 %, there are no regional wall abnormalities, mildly dilated left atrium, mild regurgitation of mitral valve and tricuspid valve. Pertinent lab data: Sodium 133, potassium 5.3, creatinine 0.99, BUN and creatinine ratio 23.2, glucose 102, magnesium 2.3, calcium 8.7, free T4 of 1.28 , TSH 2.20, cortisol 29.57. HISTORY OF PRESENT ILLNESS/HOSPITAL COURSE: This is an 84-year-old female with past medical history significant for endometrial cancer, diabetes type 2, hypertension, GERD, who came to the emergency room on 10/30/19 for reports of dizziness, nausea, vomiting and weakness. That afternoon she had been sitting down at [facility] to eat her c[employer]ra[employer] food when she had what she called blank episode that felt very similar to her typical vertigo, where she felt very nauseated, frozen at place, vomited multiple times and felt on the edge was passing out without actually losing consciousness. She stated that she originally started feeling poorly on 10/24/19 after she was started on Bactrim for a UTI. That night after starting it, she felt shaky, dizzy and nauseated that was getting better day by day until her episode at [facility] after eating. When she arrived to the emergency room labs were drawn. CT of the brain was done. EKG was performed, was found that she had mild hypothermia with a rectal temperature of 94 degrees and hypomagnesemia secondary to vomiting with magnesium level of 1.5, which was repleted with 4 g of IV magnesium. The patient was placed in Eli Hugger gown and was able to be warmed to maintain her body temperature of around 98 degrees. In the emergency room, she was no longer nauseated. Denied the room spinning, however, had felt lightheaded. Today, she underwent transthoracic echocardiogram, was feeling well without any reports of lightheadedness, nausea, vomiting, or dizziness. She has been able to remain normotensive without tachycardia, temperatures have remained between 97 and 98 degrees Fahrenheit orally. REVIEW OF SYSTEMS: A 11-point system review was negative for lightheadedness, dizziness, headaches, chest pain, palpitations, shortness of breath, abdominal pain, nausea, vomiting or issues moving her bowels or bladder. PHYSICAL EXAMINATION: General: This is a well-developed, obese older woman, seen siting in bed, in no acute distress noted. Vital Signs: 98.2 Fahrenheit, 52 pulse, 20 resp, 96% oxygen on room air, 118/53 blood pressure. HEENT: Conjunctiva pink and moist. PERRLA, EOMs intact. Oropharynx clear. Mucous membranes moist. Neck: Supple. No carotid bruit noted. Respiratory: Lung sounds clear throughout bilaterally on room air. No accessory muscle use noted. Cardiac: S1, S2 present. Heart rate regular. No gallops or rubs appreciated. Murmur that was auscultated the day previously was not heard upon today's assessment. Abdomen: Large, soft, nontender, nondistended, with positive bowel sounds x4. Musculoskeletal: Able to move all extremities. No clubbing or cyanosis of the digits. Neurologic: Sensation is intact to light touch. No focal deficits appreciated. Tongue is midline. No pronator drift. Psych: She is alert and oriented x4. Thought content organized. DISCHARGE PLAN: She is to return home with consistent carb diet. No activity restrictions. She is to return to the hospital should she experience any chest pain, palpitations, loss of consciousness, facial drooping, weakness in one or more extremities. PLAN FOR EACH CONDITION: 1. Near syncope: It is felt that this was likely due to a Sulfa antibiotic that she had had a week prior for possible UTI; however, in the ER the UA was negative. She stated that she started feeling poorly the Sunday that she started the antibiotic, but has progressively felt that day by day and is possible that her episode of vomiting was triggered by eating cymraes food as they did not seemed to be any other neurological or cardiac cause to her syncope. 2. Diabetes type 2. Her recent hemoglobin A1c which was taken in July is below 7%, maintains her goal of being under 8%. She recently stopped her glipizide per Dr. Huff, though she should continue with her home metformin for now. She is to hot die picker her glucometer from her pharmacy and suggested that she do twice a day fingersticks before breakfast and dinner. 3. Hypertension. Initially her blood pressure in the emergency room was elevated at 169/90, though has since returned to on average about 120s to 130s systolically. She is to continue her lisinopril and diltiazem as well as her baby aspirin. 4. Gastroesophageal reflux disease. She is to continue her pantoprazole. She had no reports of indigestion during her stay. MEDICATIONS TO CONTINUE UPON DISCHARGE: 1. Metformin 500 mg p.o. b.i.d. 2. Vitamin B complex 1 cap p.o. daily. 3. Pantoprazole 40 mg p.o. every other day. 4. Lisinopril 10 mg p.o. q.a.m. 5. Diltiazem 120 mg p.o. q.a.m. 6. Aspirin 81 mg p.o. q. a.m. CONDITION UPON DISCHARGE: Stable. DISPOSITION: To home. TIME SPENT: Time spent on the patient is about 50 minutes with 20 minutes of that spent [id number]. JOSEPHINE HENDRIX, CONCRETE WALL GRINDER OPERATOR [id number]/CPS #: [id number] MTDD
[2019-11-01] MEDS ORDERED: Pantoprazole TAB * 40 MG TAB PO SCH (09:00)
== END 2019-10-31 14:30 | disposition home or self-care (01) ==
LOC: ED 14:45 → MEDTELE 19:08
PROVIDERS: ADMIT Nurse Practitioner Adult Health; ATTEND Internal Medicine
DX: R55 Syncope and collapse (principal); T68.XXXA Hypothermia, initial encounter; E83.42 Hypomagnesemia; E11.9 Type 2 diabetes mellitus without complications; I10 Essential (primary) hypertension; K21.9 Gastro-esophageal reflux disease without esophagitis; Z79.899 Other long term (current) drug therapy; Z79.82 Long term (current) use of aspirin; R11.2 Nausea with vomiting, unspecified
CPT/HCPCS: 36415; 70450; 80048; 80053; 81003; 82533; 83605; 83735; 84439; 84443; 84484; 85025; 86140; 93005; 93306; 96361; 96365; 96366; 96372; 99284; A9270-GY; G0378; J1650; J3475